=== PATIENT | male | born 1945 | race Two or more races ===

== ENCOUNTER 2025-04-28 10:12 | Emergency (ER) | payer OTHER, MEDICAID ==
[~2025-04-28] VITALS: Ht 165.1 cm; Wt 82.6 kg
[2025-04-28 10:14] VITALS: BP 141/88; PULSE 70; RESP 20; TEMP 98.1; O2SAT 95
--- NOTE | 2025-04-28 11:39 | ED.PDOC ---
General HPI Comments 79 year old male presented with a request to remove a urinary catheter placed due to prostate enlargement and urinary retention. The patient had a catheter placed a little over a week ago due [place] [facility] [place] from passing. The patient had been experiencing urinary retention approximately once a month for the past year. The patient had not yet followed up with a urologist and was waiting for an appointment after receiving a referral. The patient reported taking Flomax for prostate issues and medication for high blood pressure. The patient reported not having any urinary tract infections or other urinary symptoms at the time of the visit. Chief Complaint: Urinary Time Seen by MD: 11:30 Reviewed notes: Medications, Allergies Allergies: Coded Allergies: NO KNOWN ALLERGIES (Unverified , 04/28/25) Home Meds Active Scripts Ciprofloxacin Hcl (Cipro) 500 Mg Tab, 1 TAB PO BID for 10 Days, #20 TAB 0 Refills Prov:JAEL REZAWesley Roldan NP 04/28/25 Information Source: Patient Mode of Arrival: Ambulatory Severity: Moderate Timing: Days Duration: Since onset Prehospital treatment: None Onset: Spontaneous Location: None Penile discharge: None Modifying factors: None Past Medical History PAST MEDICAL HISTORY: Dementia, HTN Past Medical History (Other): enlarged prostate Surgical History: Denies all surgeries Family History Family History: Reviewed,noncontributory to illness, No family hx of Cancer, No family hx of DM, No family hx of Heart paty, No family hx of HTN, No family hx ofKidney paty, No family hx of Liver paty, No family hx of Lung paty, No family hx of Stroke Social History Smoker: Non-Smoker Alcohol: Denies ETOH Use Drugs: Denies Drug Use Lives In: Home All Other Systems: Reviewed and Negative (as per HPI) Physical Exam General Appearance: No Apparent Distress, Normal HEENT: Normal ENT Inspection, Pharynx Normal, TMs Normal Neck: Full Range of Motion, Non-Tender, Normal, Normal Inspection Respiratory: Chest Non-Tender, Lungs Clear, No Accessory Muscle Use, No Respiratory Distress, Normal Breath Sounds Cardiovascular: No Edema, No JVD, No Murmur, No Gallop, Normal Peripheral Pulses, Regular Rate/Rhythm Breast Exam: Deferred Gastrointestinal: No Organomegaly, Non Tender, No Pulsatile Mass, Normal Bowel Sounds, Soft Genitalia: Deferred Pelvic: Deferred Rectal: Deferred Extremities: No calf tenderness, Normal capillary refill, Normal inspection, Normal range of motion, Non-tender, No pedal edema Musculoskeletal : Apperance: Normal Neurologic: Alert, operator electronic warfare II-XII nml as Tested, No Motor Deficits, Normal Affect, Normal Mood, No Sensory Deficits Cerebellar Function: Normal Reflexes: Normal Skin: Dry, Normal Color, Warm Lymphatic: No Adenopathy Was a procedure done? Was a procedure done?: No Differential Diagnosis Kidney stone (Female): Other X-Ray, Labs, Meds, VS Vital Signs Date Time Temp Pulse Resp B/P (MAP) Pulse Ox O2 Delivery O2 Flow Rate FiO2 04/28/25 10:14 98.1 70 20 141/88 95 98.1 Lab Test 04/28/25 12:24 Range/Units Urine Color Yellow Yellow Urine Clarity Turbid H Clear Urine pH 6.0 5.0-9.0 Urine Specific [place] 1.029 1.001-1.035 Urine Protein 1+ H Negative Urine Ketones Negative Negative Urine Blood 3+ H Negative /uL Urine Nitrite 1+ H Negative Urine Bilirubin Negative Negative Urine Urobilinogen Normal Negative mg/dL Urine Leukocyte Esterase 3+ Negative /uL Urine RBC 443 0 - 3 /hpf Urine Microscopic WBC 41 H 0-3 /HPF Urine Squamous Epithelial Cells Few <5 /hpf Urine Bacteria Few H None Seen /hpf Urine Hyaline Casts Few 0 - 2 /lpf Urine Mucus Few None Seen Urine Yeast (Budding) Occasional None Seen /hpf Urine Glucose Normal Normal mg/dL X-Ray, Labs, Meds, VS Comment 79 year old male presented with a request to remove a urinary catheter placed due to prostate enlargement and urinary retention. Patient arrives alert and oriented, ABC's intact, afebrile, vital signs stable, saturating well in room air labs were ordered. Urinalysis was ordered to rule out UTI or hematuria. Urinary retention secondary to prostate enlargement: The patient had a history of urinary retention due to prostate enlargement, leading to the placement of a urinary catheter. The retention had been recurrent, occurring about once a month over the past year. Benign prostatic hyperplasia: The use of Flomax and the mention of prostate enlargement suggested benign prostatic hyperplasia as an underlying condition contributing to the urinary retention. - Treatment: Planned removal of the urinary catheter with monitoring to ensure the patient could urinate independently afterward. - Patient Education: Informed the patient of the need to urinate post-catheter removal and the potential need for reinsertion if unable to urinate. - Follow-Up: Await scheduled appointment with the urologist for further management of prostate enlargement and urinary retention. - Disposition: Patient to wait in the waiting area until called for catheter removal.. Patient is stable for discharge at this time. External notes reviewed. Test results and diagnostic imaging interpreted. All diagnostic findings, discharge care, education and instructions provided Follow-up with PCP in 2 to 3 days Patient verbalized understanding and agreed to treatment plan Vital signs stable, afebrile, no acute distress noted Patient ambulatory with strong steady gait Advised to return precautions for any new or worsening symptoms, return to ER immediately for re-evaluation Patient is aware that the purpose of this visit was for an acute medical emerg ency requiring emergent stabilization. Chronic conditions, including malignancies have not been ruled out. Patient is instructed to follow up with PCP as directed and discharge instructions for continued care and workup. If unable to arrange follow-up, patient is to return to the emergency department for reassessment. Patient (parent or legal guardian if applicable) was given ve rbal and written discharge instructions and acknowledges understanding. Time of 1ST Reevaluation: 12:00 Reevaluation 1ST: Improved Patient Education/Counseling: Diagnosis, Treatment Family Education/Counseling: Diagnosis, Treatment SEPSIS Sepsis Screen Date sepsis recognized/suspect: Apr 28, 2025 Time Sepsis recognized/suspect: 1016 Recent Procedure: No On Antibiotic Therapy: No Respiratory Rate >20: No Heart Rate >90: No Temp<36 C (96.8 F) or >38.3 C: No SBP <90 or MAP <65 mmHG: No New Acute Mental Status Change: No Is the patient on CPAP, BIPAP,: No Vital Signs Date Time Temp Pulse Resp B/P (MAP) Pulse Ox O2 Delivery O2 Flow Rate FiO2 04/28/25 10:14 98.1 70 20 141/88 95 98.1 Departure 1 Departure Time of Disposition: 12:58 Impression: Primary Impression: UTI (urinary tract infection) Qualified Codes: N30.00 - Acute cystitis without hematuria Disposition: HOME / SELF CARE / HOMELESS Condition: Stable e-Prescriptions Ciprofloxacin Hcl (Cipro) 500 Mg Tab 1 TAB PO BID for 10 Days, #20 TAB 0 Refills Prov: RIGO REZA NP 04/28/25 Discharged With: Self Critical Care Note Critical Care Time?: No Stability Stability form required: No Heart Score Heart Score: Heart Score Response (Comments) Value History N/A 0 EKG N/A 0 Age N/A 0 Risk Factors N/A 0 Troponin N/A 0 Total 0 I personally scribed for RIGO REZA NP ([email or web address]) on 04/28/25 at 11:39. Electronically submitted by Roxann Zimmerman ([email or web address]). I personally scribed for RIGO REZA NP ([email or web address]) on 04/28/25 at 11:51. Electronically submitted by Roxann Zimmerman ([email or web address]). RIGO REZA NP Apr 28, 2025 11:39
[2025-04-28 12:45] LABS: Urine Budding Yeast OCCASIONAL /hpf (None Seen); Urine Protein, UAD 1+ (Negative)
[2025-04-28] MEDS ORDERED: CIPR-173 PO (12:59)
== END 2025-04-28 13:46 | disposition home or self-care (01) ==
LOC: ER 10:12
DX: N39.0 Urinary tract infection, site not specified (principal); F03.90 Unspecified dementia, unspecified severity, without behavioral disturbance, psychotic disturbance, mood disturbance, and anxiety; I10 Essential (primary) hypertension
CPT/HCPCS: 81001

== ENCOUNTER 2025-04-29 04:20 | Emergency (ER) | payer OTHER, MEDICAID ==
[~2025-04-29] VITALS: Ht 165.1 cm; Wt 82.4 kg
[~2025-04-29 04:20] MED LIST: CIPR-173 PO
--- NOTE | 2025-04-29 05:02 | ED.PDOC ---
General HPI Comments Past medical history: BPH, HTN, UTI's, melanoma, dementia Past surgical history: Patient was surgery status post melanoma, knee surgery Medications: Cipro, finasteride, Flomax HPI: Poor Historian. 79-year-old male presents to emergency department for acute urinary retention. Patient has a history of enlarged prostate. Patient has a Adamson catheter placed a proximally a week ago and was removed yesterday. Since then he has not been able to void urine again. Patient is coming to the emergency department requesting a Adamson catheter. He appears uncomfortable he points to his suprapubic area where he is having discomfort. Denies any other acute symptoms. Patient is on Cipro that was prescribed to him yesterday and states compliance with his medications. His daughter is at bedside. REVIEW OF SYSTEMS: CONSTITUTIONAL: Denies acute: fever, diaphoresis, chills, generalized weakness. HEAD: Denies acute: headache, photophobia Eyes: Denies acute: Double vision, vision loss, eye pain, eye discharge. EARS: Denies acute: tinnitus, hearing loss, ear discharge, ear pain, THROAT: Denies acute: sore throat, swelling, difficulty swallowing , pain with swallowing, change in voice. NECK: Denies acute: neck pain, neck swelling, stiff neck. HEART: Denies acute : chest pain, palpitations, LUNGS: Denies acute: SOB, wheezing, cough, hemoptysis ABDOMEN: Denies acute: Nausea, Vomiting, diarrhea, melena , hematemesis, hematochezia SKIN: Denies acute: rash, redness, lesions, itchiness. EXTREMITIES: Denies acute: calf pain, numbness, tingling, weakness, denies pain in extremity. Denies acute: Low back pain. Neuro: Denies acute: focal neurological deficit, motor or sensory focal neurological deficit, tremors, seizure like activity, confusion, dizziness, change in mental status, loss of bowel or bladder function, cauda equina like symptoms. : Denies acute: dysuria, hematuria, flank pain, increase in urinary frequency. PSYCH: Denies acute: hallucination, suicidal ideation, homicidal ideation. PHYSICAL EXAM: General: ---moderate-----acute distress, awake and alert. Head: normocephalic, atraumatic. No raccoon's eyes, no crowell sign. Neck: supple, trachea is midline, no swelling. Throat: Normal phonation. Eyes:, no erythema, no purulent discharge, no proptosis, no icterus. Heart: regular rate, regular rhythm, no significant murmur appreciated. Lungs: no apparent respiratory distress, Able to speak in full sentences. No wheezing, no rhonchi, no crackles. No stridors Clear to auscultation bilaterally. Abdomen: non tender to palpation, non distended, soft, no guarding, no rebound, + bowel sounds. Neuro: Awake, Alert, oriented to name, self, situation, follows commands GCS=15. Speech is normal. Skin: no petechia, no purpura, no cyanosis, non-pale, not jaundice. Lower extremities: --no - Pitting edema no deformity, no focal swelling, no calf TTP. Makes eye contact. moves all four extremities. Face: no apparent facial droop. No CVA tenderness to percussion bilaterally. Ambulating in the ED independently. Ears: Normal appearing TM b/l, Stroke: finger to nose cerebellar testing is intact. No pronator drift. Symmetrical parliamentary counsel muscle strength b/l PERRLA, EOM-I CN 2-12 are grossly intact, Pedal pulses are palpable. No nystagmus. No nuchal rigidity, Kernig's sign, Brudzinski's sign, no meningeal signs. ED COURSE: DISCLAIMER: This medical document was created using an electronic medical record system with voice recognition software and computerized dictation system. Although this docu ment has been carefully reviewed, there might still be some phonetic and typographical errors. Occasional wrong-word or "sound-alike" substitutions may have occurred due to the inherent limitations of voice recognition software. These areas are purely typographical due to imperfections of the software programs and do not reflect any compromise in the patient's medical care. Please read the chart carefully and recognize, using context, where these substitutions have occurred. Chief Complaint: Urinary Time Seen by MD: 05:00 Reviewed notes: Nurses Notes, Medications, Allergies Allergies: Coded Allergies: NO KNOWN ALLERGIES (Unverified , 04/28/25) Home Meds Active Scripts Ciprofloxacin Hcl (Cipro) 500 Mg Tab, 1 TAB PO BID for 10 Days, #20 TAB 0 Refills Prov:RIGO REZA SLATER APPRENTICE 04/28/25 Information Source: Patient, Relative Mode of Arrival: Ambulatory Past Medical History PAST MEDICAL HISTORY: Dementia, HTN Surgical History: Denies all surgeries Family History Family History: Reviewed,noncontributory to illness, No family hx of Cancer, No family hx of DM, No family hx of Heart paty, No family hx of HTN, No family hx ofKidney paty, No family hx of Liver paty, No family hx of Lung paty, No family hx of Stroke Social History Smoker: Non-Smoker Alcohol: Denies ETOH Use Drugs: Denies Drug Use Lives In: Home Was a procedure done? Was a procedure done?: No Differential Diagnosis Kidney stone (Female): N/A Urinary Problem (Male): Bladder Outlet, Bladder Obstruction, Epididymitis, Prostatitis, Plelonephritis, Post op Complications, Renal Failure, Urethritis, Urinary Retention, Urolithiasis, UTI X-Ray, Labs, Meds, VS Vital Signs Date Time Temp Pulse Resp B/P (MAP) Pulse Ox O2 Delivery O2 Flow Rate FiO2 04/29/25 06:41 99.3 112 20 152/75 (100) 94 99.3 04/29/25 04:22 97.4 98 16 135/81 93 97.4 Lab Test 04/29/25 05:39 04/29/25 04:55 Range/Units Urine Color Light-yellow Yellow Urine Clarity Clear Clear Urine pH 5.5 5.0-9.0 Urine Specific [place] 1.022 1.001-1.035 Urine Protein Negative Negative Urine Ketones Trace Negative Urine Blood 1+ H Negative /uL Urine Nitrite 1+ H Negative Urine Bilirubin Negative Negative Urine Urobilinogen Normal Negative mg/dL Urine Leukocyte Esterase 2+ Negative /uL Urine RBC 5 0 - 3 /hpf Urine Microscopic WBC 118 H 0-3 /HPF Urine Squamous Epithelial Cells None seen <5 /hpf Urine Bacteria None seen None Seen /hpf Urine Mucus Few None Seen Urine Glucose Normal Normal mg/dL White Blood Count 13.5 H 4.4-10.8 10^3/uL Red Blood Count 5.37 4.5-5.90 10^6/uL Hemoglobin 16.4 13.5-17.5 g/dL Hematocrit 48.2 41.0-53.0 % Mean Corpuscular Volume 89.7 80.0-100.0 fL Mean Corpuscular Hemoglobin 30.5 28.0-32.0 pg Mean Corpuscular Hemoglobin Concent 34.0 32.0-36.0 g/dL Red Cell Distribution Width 14.3 11.8-14.3 % Platelet Count 102 L 140-450 10^3/uL Mean Platelet Volume 11.2 H 6.9-10.8 fL Neutrophils (%) (Auto) 88.9 H 37.0-80.0 % Lymphocytes (%) (Auto) 4.2 L 10.0-50.0 % Monocytes (%) (Auto) 6.1 0.0-12.0 % Eosinophils (%) (Auto) 0.3 0.0-7.0 % Basophils (%) (Auto) 0.5 0.0-2.0 % Neutrophils # (Auto) 12.0 H 1.6-8.6 10 ^3/uL Lymphocytes # (Auto) 0.6 0.4-5.4 10 ^3/uL Monocytes # (Auto) 0.8 0-1.3 10 ^3/uL Eosinophils # (Auto) 0 0-0.8 10 ^3/uL Basophils # (Auto) 0.1 0-0.2 10 ^3/uL Nucleated Red Blood Cells 0.0 % Sodium Level 141 136-145 mmol/L Potassium Level 3.7 3.5-5.1 mmol/L Chloride Level 110 H 98-107 mmol/L Carbon Dioxide Level 20 20-31 mmol/L Anion Gap 11 5-15 Blood Urea Nitrogen 18 9-23 mg/dL Creatinine 0.97 0.700-1.30 mg/dL Glomerular Filtration Rate Calc 80 >90 mL/min BUN/Creatinine Ratio 18.6 10.0-20.0 Serum Glucose 134 H 74-106 mg/dL Calcium Level 9.3 8.7-10.4 mg/dL Total Bilirubin 0.8 0.2-1.0 mg/dL Aspartate Amino Transferase (AST) 24 13-40 U/L Alanine Aminotransferase (ALT) 60 H 7-40 U/L Alkaline Phosphatase 151 H 46-116 U/L Total Protein 7.4 5.7-8.2 g/dL Albumin 4.5 3.2-4.8 g/dL Current Medications Medications (Trade) Dose Ordered Sig/Aditya Route Start Time Stop Time Status Last Admin Lidocaine HCl (Glydo) 11 ml ONCE ONCE UR 04/29/25 05:15 04/29/25 05:16 DC 04/29/25 05:14 Time of 1ST Reevaluation: 05:30 Reevaluation 1ST: Unchanged Patient Education/Counseling: Diagnosis, Treatment Family Education/Counseling: Diagnosis, Treatment Comments MDM: patient presented with the above HPI.---urinary retention---workup was initiated. patient was found with the above mentioned diagnosis. the following medications were ordered: please refer to order lists of meds and tests obtained by myself Dr. Santiago. Patient ED course and VS have been stabilized. Patient has been reassessed in the ED and remained in a stable condition. Pertinent incidental findings were discussed with the patient and/or family. Patient/family voices understanding and is agreeable with plan. Patient has been observed in the ED adequate length of time to insure improvement/stability. Escalation of care considered: Consideration of escalation to observation or admission Adamson catheter was placed. Patient's symptoms have resolved. Patient will follow up with the his urologist. Patient already has ciprofloxacin that he started yesterday for UTI. Patient was DISCHARGED home in a stable condition. All the reports of any imaging studies that were ordered by myself were reviewed by myself. SEPSIS Sepsis Screen Date sepsis recognized/suspect: Apr 29, 2025 Time Sepsis recognized/suspect: 424 Recent Procedure: No On Antibiotic Therapy: No Respiratory Rate >20: No Heart Rate >90: No Temp<36 C (96.8 F) or >38.3 C: No SBP <90 or MAP <65 mmHG: No New Acute Mental Status Change: No Is the patient on CPAP, BIPAP,: No Physician Orders Bladder Scan (04/29/25 ) Insert Adamson Catheter QSHIFT (04/29/25 05:00) Vital Signs Date Time Temp Pulse Resp B/P (MAP) Pulse Ox O2 Delivery O2 Flow Rate FiO2 04/29/25 06:41 99.3 112 20 152/75 (100) 94 99.3 04/29/25 04:22 97.4 98 16 135/81 93 97.4 Laboratory Tests Test 04/29/25 04:55 White Blood Count 13.5 10^3/uL (4.4-10.8) H Medications Medications Dose Ordered Sig/Aditya Route Start Time Stop Time Status Last Admin Dose Admin Lidocaine HCl 11 ml ONCE ONCE UR 04/29/25 05:15 04/29/25 05:16 DC 04/29/25 05:14 Departure 1 Departure Time of Disposition: 05:11 Impression: Primary Impression: Acute urinary retention Additional Impressions: UTI (urinary tract infection) Enlarged prostate Disposition: HOME / SELF CARE / HOMELESS Condition: Stable Additional Instructions: Additional instructions: Please read all instructions provided in this packet carefully. You MUST follow-up with your primary care/family doctor in 1 to 2 days. If you are unable to see your primary care/family doctor, please return to our emergency room for re-assessment and re-evaluation in 1 to 2 days. Return to the emergency room here in our facility or to the nearest ER [facility] if your symptoms change or worsen. Continue taking medications as prescribed. CONSULTATIONS: you MUST Follow-up for consultation as soon as possible with: --urology in 1-2 days. Please call for appointment. You MUST call the consultants office yourself to make an appointment. You may need to arrange that through your insurance and/or your primary/family doctor. If you are unable to see the oracle database consultant in 1 to 2 days, you must return to our emergency room (or any other ER of your choice) for re-assessment and re- evaluation. Adequate fluid hydration. Although you have been discharged from the Emergency Department, this does not mean that you have a "clean bill of health". No definitive diagnosis for your symptoms has been made today. It is possible that you are in the process of developing a serious illness. This is why you must return to the ED without fail if any new or worsening symptoms develop. Discharged With: Self, Relative Critical Care Note Critical Care Time?: No I personally scribed for RYAN SANTIAGO DO ([email or web address]) on 04/29/25 at 05:02. Electronically submitted by Josh Leavitt ([email or web address]). I personally scribed for RYAN SANTIAGO DO ([email or web address]) on 04/29/25 at 05:14. Electronically submitted by Josh Leavitt ([email or web address]). RYAN SANTIAGO DO Apr 29, 2025 05:02
[2025-04-29] MEDS: LIDOCAINE 2% JELLY 11ml (GLYDO) UR ONE (05:14)
[2025-04-29 05:32] LABS: Hematocrit 48.2 % (41.0-53.0); Hemoglobin 16.4 g/dL (13.5-17.5); Mean Corpuscular Hemoglobin 30.5 pg (28.0-32.0); Mean Corpuscular Volume 89.7 fL (80.0-100.0); Nucleated Red Blood Cells % 0.0 %
[2025-04-29 05:53] LABS: Albumin 4.5 g/dL (3.2-4.8); Anion Gap 11 (5-15); BUN/Creatinine Ratio 18.6 (10.0-20.0); Blood Urea Nitrogen 18 mg/dL (9-23); Calcium 9.3 mg/dL (8.7-10.4); Potassium 3.7 mmol/L (3.5-5.1); Sodium 141 mmol/L (136-145); Total Protein 7.4 g/dL (5.7-8.2)
[2025-04-29 05:54] LABS: Bilirubin, Total 0.8 mg/dL (0.2-1.0)
[2025-04-29 05:56] LABS: Alanine Aminotransferase 60 U/L (7-40); Alkaline Phosphatase 151 U/L (46-116)
[2025-04-29 05:57] LABS: Carbon Dioxide 20 mmol/L (20-31); Chloride 110 mmol/L (98-107); Glucose 134 mg/dL (74-106)
[2025-04-29 06:05] LABS: Urine Protein, UAD Negative (Negative)
[2025-04-29 06:41] VITALS: BP 152/75; PULSE 112; RESP 20; TEMP 99.3; O2SAT 94
== END 2025-04-29 06:54 | disposition home or self-care (01) ==
LOC: ER 04:20
DX: N40.1 Benign prostatic hyperplasia with lower urinary tract symptoms (principal); N39.0 Urinary tract infection, site not specified; I10 Essential (primary) hypertension; F03.90 Unspecified dementia, unspecified severity, without behavioral disturbance, psychotic disturbance, mood disturbance, and anxiety; Z46.6 Encounter for fitting and adjustment of urinary device; Z85.820 Personal history of malignant melanoma of skin
CPT/HCPCS: 36415; 51702; 80053; 81001; 85025

== ENCOUNTER 2025-05-07 15:40 | Emergency (ER) | payer OTHER, MEDICAID ==
[~2025-05-07] VITALS: Ht 165.1 cm; Wt 83.0 kg
[2025-05-07 16:05] VITALS: BP 140/95; PULSE 85; RESP 16; TEMP 98; O2SAT 95
--- NOTE | 2025-05-07 16:13 | ED.PDOC ---
History of Present Illness HPI Comments A 79 YEAR OLD MALE PRESENTS TO THE ED WITH COMPLAINT OF REQUEST FOR TERRY CATHETER REMOVAL. PATIENT STATES HE HAS HAD A TERRY CATHETER IN PLACE FOR ABOUT A WEEK AND A HALF AND IS HERE IN THE ED TODAY TO HAVE THIS TERRY CATHETER REMOVED. PATIENT NOTES HE IS CURRENTLY TAKING ANTIBIOTICS. PATIENT DENIES FEVER, CHILLS, SHORTNESS OF BREATH, CHEST PAIN, ABDOMINAL PAIN, NAUSEA, VOMITING, HEADACHE, OR OTHER COMPLAINTS. NO OTHER SYMPTOMS OR MODIFYING FACTORS AT THIS TIME. PATIENT IS ALERT, ORIENTED X 4, AND HAS STEADY GAIT. Chief Complaint: Urinary Time Seen by MD: 15:51 Reviewed Notes: Nurses Notes, Medications, Allergies Allergies: Coded Allergies: NO KNOWN ALLERGIES (Unverified , 04/28/25) Home Meds Active Scripts Ciprofloxacin Hcl (Cipro) 500 Mg Tab, 1 TAB PO BID for 10 Days, #20 TAB 0 Refills Prov:LIBIARIGO NP 04/28/25 Information Source: Patient Mode of Arrival: Ambulatory Severity: Mild Timing: Days Duration: Since onset, Days Prehospital treatment: None Medication Refill: For: Other (TERRY CATHETER REMOVAL) Past Medical History PAST MEDICAL HISTORY: Dementia, HTN, UTI'S Past Medical History (Other): BPH Surgical History: Denies all surgeries Family History Family History: Reviewed,noncontributory to illness, No family hx of Cancer, No family hx of DM, No family hx of Heart paty, No family hx of HTN, No family hx ofKidney paty, No family hx of Liver paty, No family hx of Lung paty, No family hx of Stroke Social History Smoker: Non-Smoker Alcohol: Denies ETOH Use Drugs: Denies Drug Use Lives In: Home Constitutional: denies: chills, diaphoresis, fatigue, fever, malaise, sweats, weakness, others EENTM: denies: blurred vision, double vision, ear bleeding, ear discharge, ear drainage, ear pain, ear ringing, eye pain, eye redness, hearing loss, mouth pain, mouth swelling, nasal discharge, nose bleeding, nose congestion, nose pain, photophobia, tearing, throat pain, throat swelling, voice changes, others Respiratory: denies: cough, hemoptysis, orthopnea, SOB at rest, shortness of breath, SOB with excertion, stridor, wheezing, others Cardiovascular: denies: chest pain, dizzy spells, diaphoresis, Dyspnea on exertion, edema, irregular heart beat, left arm pain, lightheadedness, palpitations, PND, syncope, others Gastrointestinal: denies: abdomen distended, abdominal pain, blood streaked bowels, constipated, diarrhea, dysphagia, difficulty swallowing, hematemesis, melena, nausea, poor appetite, poor fluid intake, rectal bleeding, rectal pain, vomiting, others Genitourinary: reports: others (REQUEST FOR TERRY CATHETER REMOVAL); denies: burning, dysuria, flank pain, frequency, hematuria, incontinence, penile discharge, penile sore, pain, testicle pain, testicle swelling, urgency Neurological: denies: dizziness, fainting, headache, left sided numbness, left sided weakness, numbness, paresthesia, pre-existing deficit, right sided numbness, right sided weakness, seizure, speech problems, tingling, tremors, weakness, others Musculoskeletal: denies: back pain, gout, joint pain, joint swelling, muscle pain, muscle stiffness, neck pain, others Integumetry: denies: bruises, change in color, change in hair/nails, dryness, laceration, lesions, lumps, rash, wounds, others Allergic/Immunocompromised: denies: Difficulty Healing, Frequent Infections, Hives, Itching, others Hematologic/Lymphatic: denies: anemia, blood clots, easy bleeding, easy bruising, swollen glands, others Endocrine: denies: excessive hunger, excessive sweating, excessive thirst, excessive urination, flushing, intolerance to cold, intolerance to heat, unexplained weight gain, unexplained weight loss, others Psychiatric: denies: anxiety, bipolar disorder, depression, hopeless, panic disorder, schizophrenia, sleepless, suicidal, others All Other Systems: Reviewed and Negative Physical Exam General Appearance: No Apparent Distress, Normal HEENT: Normal ENT Inspection, PERRL/EOMI, Pharynx Normal, TMs Normal Neck: Full Range of Motion, Non-Tender, Normal, Normal Inspection Respiratory: Chest Non-Tender, Lungs Clear, No Accessory Muscle Use, No Respiratory Distress, Normal Breath Sounds Cardiovascular: No Edema, No JVD, No Murmur, No Gallop, Normal Peripheral Pulses, Regular Rate/Rhythm Breast Exam: Deferred Gastrointestinal: No Organomegaly, Non Tender, No Pulsatile Mass, Normal Bowel Sounds, Soft Genitalia: Deferred Pelvic: Deferred Rectal: Deferred Extremities: No calf tenderness, Normal capillary refill, Normal inspection, Normal range of motion, Non-tender, No pedal edema Musculoskeletal : Apperance: Normal Neurologic: Alert, desk director II-XII nml as Tested, No Motor Deficits, Normal Affect, Normal Mood, No Sensory Deficits Cerebellar Function: Normal Reflexes: Normal Skin: Dry, Normal Color, Warm Peripheral Pulses: 2+ carotid (R), 2+ carotid (L) Lymphatic: No Adenopathy Was a procedure done? Was a procedure done?: No Differential Dx Considerations may include: TERRY CATHETER REMOVAL X-Ray, Labs, Meds, VS Vital Signs Date Time Temp Pulse Resp B/P (MAP) Pulse Ox O2 Delivery O2 Flow Rate FiO2 05/07/25 16:05 98.0 85 16 140/95 (110) 95 98.0 05/07/25 16:05 85 16 95 Room Air 05/07/25 15:44 98.0 85 16 140/95 95 98.0 X-Ray, Labs, Meds, VS Comment EXTERNAL MEDICAL RECORDS REVIEWED: [NONE] INDEPENDENT HISTORIANS: [NONE] SOCIAL DETERMINANTS OF HEALTH: [NONE] LABS ORDERED: NONE REVIEWED AND INTERPRETED RESULTS: NONE IMAGING ORDERED: NONE TREATMENTS ORDERED: PATIENT'S TERRY CATHETER WAS REMOVED. PROCEDURES PERFORMED: NONE CRITICAL CARE TIME: NONE I HAVE DISCUSSED THE PATIENT WITH THE ATTENDING PHYSICIAN DR. WOLFE AND HE AGREES WITH THE PATIENT'S PLAN OF CARE AND DISPOSITION. BASED ON HISTORY OF PRESENT ILLNESS, AND PHYSICAL EXAM, PATIENT WILL BE DISCHARG ED HOME. SHARED DECISION MAKING: PATIENT INSTRUCTED TO FOLLOW UP WITH PRIMARY CARE PROVIDER IN 1-2 DAYS FOR RE-EVALUATION OF SYMPTOMS. PATIENT VERBALIZES UNDERSTANDING TO RETURN TO ED FOR NEW OR WORSENING SYMPTOMS OR IF FOLLOW UP WITH PCP CANNOT BE OBTAINED. PATIENT FEELS COMFORTABLE GOING HOME AT THIS TIME. ALL QUESTIONS ADDRESSED AT TIME OF DISCHARGE. Time of 1ST Reevaluation: 16:20 Reevaluation 1ST: Improved Patient Education/Counseling: Diagnosis, Treatment, Need For Follow Up Family Education/Counseling: Diagnosis, Treatment, Need For Follow Up Medical Screening: No EMC Exist At This Time SEPSIS Sepsis Screen Date sepsis recognized/suspect: May 07, 2025 Time Sepsis recognized/suspect: 1548 Recent Procedure: No On Antibiotic Therapy: No Respiratory Rate >20: No Heart Rate >90: No Temp<36 C (96.8 F) or >38.3 C: No SBP <90 or MAP <65 mmHG: No New Acute Mental Status Change: No Is the patient on CPAP, BIPAP,: No Vital Signs Date Time Temp Pulse Resp B/P (MAP) Pulse Ox O2 Delivery O2 Flow Rate FiO2 05/07/25 16:05 98.0 85 16 140/95 (110) 95 98.0 05/07/25 16:05 85 16 95 Room Air 05/07/25 15:44 98.0 85 16 140/95 95 98.0 Departure 1 Departure Time of Disposition: 16:20 Impression: Primary Impression: Encounter for Terry catheter removal Disposition: HOME / SELF CARE / HOMELESS Condition: Stable Additional Instructions: FOLLOW-UP WITH PCP IN 1 TO 2 DAYS. RETURN TO ED FOR ANY NEW OR WORSENING SYMPTOMS. Discharged With: Self Critical Care Note Critical Care Time?: No Stability Stability form required: No I personally scribed for ANDERSON LEUNG ([email or web address]) on 05/07/25 at 16:13. Electronically submitted by Eliot Suarez ([email or web address]). ANDERSON LEUNG May 07, 2025 16:13
== END 2025-05-07 16:17 | disposition home or self-care (01) ==
LOC: ER 15:40
DX: Z46.6 Encounter for fitting and adjustment of urinary device (principal); F03.90 Unspecified dementia, unspecified severity, without behavioral disturbance, psychotic disturbance, mood disturbance, and anxiety; I10 Essential (primary) hypertension; Z79.899 Other long term (current) drug therapy; Z87.440 Personal history of urinary (tract) infections

== ENCOUNTER 2025-05-08 23:53 | Emergency (ER) | payer OTHER, MEDICAID ==
[~2025-05-08] VITALS: Ht 165.1 cm; Wt 77.0 kg
[2025-05-09] MEDS ORDERED: LEVO500T91 PO (01:00)
--- NOTE | 2025-05-09 01:01 | ED.PDOC ---
General HPI Comments Pt presents with cc of urinary retention x yesterday. Pt states he had a martinez catheter that was in place for 1 week d/t prostatitis and just removed yesterday. Since it was removed he has not been able to urinate. Pain currently at a 7/10. Denies fever, chills, back pain, flank pain, gross amount of blood in the urine, nausea or vomiting Chief Complaint: Urinary Time Seen by MD: 00:00 Reviewed notes: Nurses Notes, Medications, Allergies Allergies: Coded Allergies: NO KNOWN ALLERGIES (Unverified , 04/28/25) Home Meds Active Scripts Ciprofloxacin Hcl (Cipro) 500 Mg Tab, 1 TAB PO BID for 10 Days, #20 TAB 0 Refills Prov:LIBIARIGO NP 04/28/25 Information Source: Patient, Relative (Child) Mode of Arrival: Ambulatory Past Medical History PAST MEDICAL HISTORY: Dementia, HTN, UTI'S Surgical History: Denies all surgeries Family History Family History: Reviewed,noncontributory to illness, No family hx of Cancer, No family hx of DM, No family hx of Heart paty, No family hx of HTN, No family hx ofKidney paty, No family hx of Liver paty, No family hx of Lung paty, No family hx of Stroke Social History Smoker: Non-Smoker Alcohol: Denies ETOH Use Drugs: Denies Drug Use Lives In: Home All Other Systems: Reviewed and Negative (see hpi) Physical Exam General Appearance: No Apparent Distress, Normal HEENT: Pharynx Normal Neck: Full Range of Motion, Normal Respiratory: Chest Non-Tender, Lungs Clear, No Respiratory Distress, Normal Breath Sounds Cardiovascular: No Murmur, Normal Peripheral Pulses, Regular Rate/Rhythm Breast Exam: Deferred Gastrointestinal: No Organomegaly, No Pulsatile Mass, Normal Bowel Sounds, Soft, Suprapubic (Tenderness and distention) Genitalia: Deferred Pelvic: Deferred Rectal: Deferred Extremities: Normal range of motion, No pedal edema Musculoskeletal : Apperance: Normal Neurologic: Alert, No Motor Deficits, Normal Affect, Normal Mood, No Sensory Deficits Cerebellar Function: Normal Reflexes: NOT DONE Skin: Dry, Normal Color, Warm Lymphatic: No Adenopathy Was a procedure done? Was a procedure done?: No Differential Diagnosis Kidney stone (Female): N/A Kidney stone (Male): Pyelonephritis, Urinary obstruction, Urolithiasis, Renal infarction, Urinary tract infection Urinary Problem (Male): Bladder Outlet, Bladder Obstruction, Prostatitis, Plelonephritis, UTI X-Ray, Labs, Meds, VS Vital Signs Date Time Temp Pulse Resp B/P (MAP) Pulse Ox O2 Delivery O2 Flow Rate FiO2 05/08/25 23:54 97.7 93 20 165/91 100 97.7 X-Ray, Labs, Meds, VS Comment Patient tolerated procedure well Martinez catheter to a inserted by RN orange and 50 mL of dark yellow cloudy urine without follow odor. Patient with immediate pain relief. Script trial of Levaquin likely secondary to patient's enlarge prostate consider bacterial prostatitis. Advised to rest increase p.o. fluids with electrolytes follow up with Urology as scheduled ER return precautions given patient indicates understanding agrees with discharge plan of care Time of 1ST Reevaluation: 00:00 Reevaluation 1ST: Unchanged Time of 2ND Reevaluation: 00:58 Reevaluation 2ND: Improved Patient Education/Counseling: Diagnosis, Treatment, Need For Follow Up Family Education/Counseling: Diagnosis, Treatment, Need For Follow Up SEPSIS Sepsis Screen Date sepsis recognized/suspect: May 08, 2025 Time Sepsis recognized/suspect: 2355 Recent Procedure: No On Antibiotic Therapy: No Respiratory Rate >20: No Heart Rate >90: Yes Temp<36 C (96.8 F) or >38.3 C: No SBP <90 or MAP <65 mmHG: No New Acute Mental Status Change: No Is the patient on CPAP, BIPAP,: No Physician Orders Insert/Manage Urinary Catheter QSHIFT (05/09/25 00:00) Urinalysis (05/09/25 00:02) Vital Signs Date Time Temp Pulse Resp B/P (MAP) Pulse Ox O2 Delivery O2 Flow Rate FiO2 05/08/25 23:54 97.7 93 20 165/91 100 97.7 Departure 1 Departure Time of Disposition: 00:59 Impression: Primary Impression: Acute urinary retention Disposition: 01 HOME / SELF CARE / HOMELESS Condition: Stable e-Prescriptions Levofloxacin Hemihydrate (LEVAQUIN 500 MG) 500 Mg Tab 1 TAB PO DAILY for 10 Days, #10 TAB Prov: SHEN FLORENCE 05/09/25 Discharged With: Relative (Sibling) Critical Care Note Critical Care Time?: No Stability Stability form required: No SHEN FLORENCE May 09, 2025 01:01
[2025-05-09 01:11] VITALS: BP 144/73; PULSE 86; RESP 18; TEMP 97.5; O2SAT 95
[2025-05-09 01:55] LABS: Urine Protein, UAD Negative (Negative)
== END 2025-05-09 01:21 | disposition home or self-care (01) ==
LOC: ER 23:53
DX: R33.9 Retention of urine, unspecified (principal); I10 Essential (primary) hypertension; F03.90 Unspecified dementia, unspecified severity, without behavioral disturbance, psychotic disturbance, mood disturbance, and anxiety; Z79.899 Other long term (current) drug therapy; Z87.440 Personal history of urinary (tract) infections
CPT/HCPCS: 51702; 81001; 99284; A4315